=== PATIENT | female | born 1970 | race Caucasian/White ===

== ENCOUNTER 2019-05-01 09:55 | Day surgery (SDC) | payer OTHER ==
[~2019-05-01 09:55] MED LIST: MAXIMUM D310000 UNIT PO; PERCOCET 5-3251 EACH PO; RECTICARE30 GM TOP; SYNTHROID88 MCG PO
== END 2019-05-01 11:20 | disposition home or self-care (01) ==
LOC: AMB-ENDOS 09:55
DX: K59.09 Other constipation (principal); Z12.11 Encounter for screening for malignant neoplasm of colon

== ENCOUNTER 2022-09-22 07:25 | Outpatient (CLI) | payer OTHER | END 2022-09-22 07:32 | disposition home or self-care (01) | LOC: NUCLEAR 07:25 | DX: R14.1 Gas pain (principal); R11.11 Vomiting without nausea | CPT/HCPCS: 78264; A9541 ==

== ENCOUNTER 2025-09-23 07:00 | Inpatient (IN) | payer OTHER ==
[~2025-09-23] VITALS: Ht 154.9 cm; Wt 62.6 kg
[2025-09-23] MEDS ORDERED: SYNTHROID100 MCG PO (08:24)
[2025-09-23] MEDS ORDERED: TOPROL XL25 M1 PO (08:24)
[2025-09-23] MEDS ORDERED: LEVSIN/SL0.125 MG SL (08:25)
[2025-09-23 08:35] VITALS: BP 115/73
[2025-09-23 09:13] LABS: BASO % 0.9 % (0.1-1.2); EOS # 0.15 (0.04-0.54); EOS % 2.3 % (0.7-7.0); LYMPH # 1.48 (1.18-3.74); LYMPH % 23.0 % (19.3-53.1); MEAN PLATELET VOLUME 11.30 fl (9.4-12.4); MONO # 0.40 (0.24-0.82); MONO % 6.2 % (4.7-12.5); NEUT # 4.34 (1.56-6.13); NEUT % 67.4 % (34.0-71.1); RED CELL DISTRIBUTION WIDTH 12.9 % (11.6-14.4)
[2025-09-23 09:16] LABS: URINE APPEARANCE Clear; URINE BILIRRUBIN Negative (NEGATIVE); URINE BLOOD Negative; URINE COLOR Yellow; URINE GLUCOSE Negative (NEGATIVE); URINE KETONE Negative (NEGATIVE); URINE LEUKOCYTE Negative; URINE NITRATE Negative; URINE PROTEIN Negative (NEGATIVE); URINE UROBILINOGEN 0.2 E.U./dl
[2025-09-23 09:20] LABS: URINE BACTERIA 441.4 uL (0.0-1933); URINE EPITHELIAL CELLS 7.0 uL (0.0-38.8); URINE RBC 2.0 uL (0.0-20.8)
[2025-09-23 09:27] LABS: URINE CAST 0.00 uL (0.0-1.40); URINE WBC 0.9 uL (0.0-23.2)
[2025-09-23 09:52] LABS: INR 0.96
[2025-09-23 10:26] LABS: ALT/SGPT 22.0 U/L (12-78); AST/SGOT 12.0 U/L (15-37); BILIRUBIN TOTAL 0.6 mg/dL (0.3-1.2); BUN CREA RATIO 18.0 (7.0-25.0); CREATININE SERUM 0.77 mg/dL (0.55-1.02); GFR 77.54; GLOBULINA 2.8 G/DL (2.4-3.5); GLUCOSE FASTING 90.0 mg/dL (65-100); OSMOLALITY SERUM 283.0 MOSM/KG (275-295); TSH 1.29 uIU/mL (0.358-3.74)
[2025-10-01] MEDS ORDERED: CEFOXITIN SODIUM 2,000 MG VIAL IV ONE (10:33)
[2025-10-01] MEDS ORDERED: POVIDONE-IODINE 118 ML BOTT TOP ONE (10:43)
[2025-10-01] MEDS ORDERED: SUGAMMADEX SODIUM 200 MG/2 ML VIAL IV ONE (13:04)
[2025-10-01] MEDS ORDERED: MORPHINE SULFATE 4 MG/ML CARTRIDGE IV SCH (13:15)
[2025-10-01] MEDS ORDERED: PROMETHAZINE HCL 50 MG/ML AMPUL IV SCH (14:00)
[2025-10-01] MEDS ORDERED: OxyCODONE HCL 5 MG TABLET (ROXICODONE) PO SCH (14:05)
[2025-10-01] MEDS ORDERED: KETOROLAC TROMETHAMINE 60 MG VIAL IM STA (14:07)
[2025-10-01] MEDS ORDERED: KETOROLAC TROMETHAMINE 60 MG VIAL IM ONE (14:13)
[2025-10-01 15:50] LABS: BASO % 0.3 % (0.1-1.2); EOS # 0.01 (0.04-0.54); EOS % 0.1 % (0.7-7.0); LYMPH # 0.87 (1.18-3.74); LYMPH % 4.5 % (19.3-53.1); MEAN PLATELET VOLUME 11.20 fl (9.4-12.4); MONO # 0.93 (0.24-0.82); MONO % 4.9 % (4.7-12.5); NEUT # 17.17 (1.56-6.13); NEUT % 89.7 % (34.0-71.1); RED CELL DISTRIBUTION WIDTH 13.0 % (11.6-14.4)
[2025-10-01 16:38] LABS: ALT/SGPT 20.0 U/L (12-78); AST/SGOT 12.0 U/L (15-37); BILIRUBIN TOTAL 0.7 mg/dL (0.3-1.2); BUN CREA RATIO 12.0 (7.0-25.0); CREATININE SERUM 0.75 mg/dL (0.55-1.02); GFR 79.93; GLOBULINA 2.6 G/DL (2.4-3.5); GLUCOSE FASTING 98.0 mg/dL (65-100); OSMOLALITY SERUM 282.0 MOSM/KG (275-295)
[2025-10-01] MEDS ORDERED: PHENOL 177 ML BOTTLE MM SCH (17:00)
[2025-10-01] MEDS ORDERED: SIMETHICONE 125 MG CAPSULE PO SCH (17:00)
[2025-10-01 19:05] VITALS: BP 118/69; O2SAT 96
[2025-10-01 23:30] VITALS: BP 133/65; O2SAT 98
[2025-10-02 08:00] VITALS: BP 106/70; O2SAT 99
[2025-10-02] MEDS ORDERED: TRAM1TAB98 PO (09:02)
== END 2025-10-02 13:26 | disposition home or self-care (01) | DRG 743 ==
LOC: OB/GYN 10-01 07:00 → O/R 10-01 08:00 → SURG 10-01 08:00 → OB/GYN 10-01 14:00 → SURG 10-01 16:06
PROVIDERS: ADMIT Obstetrics & Gynecology; ATTEND Obstetrics & Gynecology
PROC: 0UT7FZZ Resection of Bilateral Fallopian Tubes, Via Natural or Artificial Opening With Percutaneous Endoscopic Assistance (ICD-10-PCS; 2025-10-01)
PROC: 0UT2FZZ Resection of Bilateral Ovaries, Via Natural or Artificial Opening With Percutaneous Endoscopic Assistance (ICD-10-PCS; 2025-10-01)
PROC: 0USG4ZZ Reposition Vagina, Percutaneous Endoscopic Approach (ICD-10-PCS; 2025-10-01)
PROC: 0JQC3ZZ Repair Pelvic Region Subcutaneous Tissue and Fascia, Percutaneous Approach (ICD-10-PCS; 2025-10-01)
PROC: 0UT9FZZ Resection of Uterus, Via Natural or Artificial Opening With Percutaneous Endoscopic Assistance (ICD-10-PCS; principal; 2025-10-01 14:00)
DX: N85.01 Benign endometrial hyperplasia (principal); N95.0 Postmenopausal bleeding; G47.30 Sleep apnea, unspecified; E03.9 Hypothyroidism, unspecified; I10 Essential (primary) hypertension